=== PATIENT | male | born 1980 | race Caucasian/White ===

== ENCOUNTER 2020-03-18 10:18 | Emergency (ER) | payer SELFPAY ==
[2020-03-18 10:47] VITALS: BP 141/93; PULSE 83; RESP 14; TEMP 37.4; O2SAT 99; BMI 25.4
--- NOTE | 2020-03-18 11:33 | ED_ITS ---
HPI - Skin/Abscess/Foreign Bdy <MAGY Espinoza - Last Filed: 03/18/20 15:32> General Chief complaint: Skin/Abscess/Foreign Body Stated complaint: remove tick head from left chest this am Time Seen by Provider: 03/18/20 11:06 Source: patient Mode of arrival: Ambulatory Limitations: no limitations History of Present Illness HPI narrative: Patient is a 39-year-old male current smoker who denies pertinent medical history who presents with a chief complaint of a tick being on the left side of his chest. His tried to remove earlier this morning and is concerned that she broke off part of the tick. He states that the tick was attached for at least 24 hours, and was engorged when it was removed. They are concerned that it is a deer tick as there has been multiple cases of Lyme disease on [place] where they live. He complains of very low temps, below 99, general malaise. He does not know when his last tetanus was. He denies any major medical history. Related Data Home Medications Medication Instructions Recorded Confirmed . (No Home Medications) #0 05/22/10 Previous Rx's Medication Instructions Recorded doxycycline hyclate 200 mg PO DAILY 1 Days #2 tab 03/18/20 Allergies Allergy/AdvReac Type Severity Reaction Status Date / Time No Known Drug Allergies Allergy Verified 03/18/20 10:52 Review of Systems <MAGY Espinoza - Last Filed: 03/18/20 15:32> Review of Systems Narrative: GENERAL: Denies chills, fatigue, malaise, fever, sweats. HEENT: Denies sinus pain, ear pain, sore throat, difficulty swallowing, dizziness. RESPIRATORY: Denies dyspnea, cough, wheezing, hemoptysis, sputum. CARDIOVASCULAR: Denies chest pain, palpitations, orthopnea, edema, GASTROINTESTINAL: Denies nausea, vomiting, abdominal pain, diarrhea, constipation, melena. : Denies dysuria, frequency, incontinence, hematuria, urinary retention. MUSCULOSKELETAL: denies weakness, joint pain, or bony pain SKIN: See HPI NEUROLOGIC: Denies weakness, headache, numbness, change in speech, confusion, seizures, incoordination. PSYCHIATRIC: No concerning psychosocial issues. 12 point review of systems is negative except for those stated above Patient History [facility] - Last Filed: 03/18/20 15:32> Social History Smoking Status: Current every day smoker Smoking Status: Current every day smoker tobacco type: cigarettes alcohol intake frequency: 3 or more drinks per day Alcohol type: beer Substance Use Type: marijuana Exam <Leah NessTAMIP-BC - Last Filed: 03/18/20 15:32> Narrative Exam Narrative: GENERAL: This is a well-nourished, well-developed patient, no acute distress HEAD: Atraumatic. Normocephalic. No temporal or scalp tenderness. EYES: Pupils equal round and reactive. Extraocular motions intact. No scleral icterus. No injection or drainage. ENT: Nose without bleeding, purulent drainage or septal hematoma. Throat without erythema, tonsillar hypertrophy or exudate. Uvula midline. Airway patent. NECK: Trachea midline. No JVD or lymphadenopathy. Supple, nontender, no meningeal signs. CARDIOVASCULAR: Regular rate and rhythm RESPIRATORY: Clear to auscultation. Breath sounds equal bilaterally. No wheezes, rales, or rhonchi. No cough. No increased respiratory effort. No accessory muscle use. GASTROINTESTINAL: Abdomen soft, non-tender, nondistended. No hepato- splenomegaly, or palpable masses. No guarding. EXTREMITIES: No clubbing, cyanosis, or edema. No joint tenderness, effusion, or edema noted. BACK: Nontender without deformity or crepitance. No flank tenderness. NEURO: AOx3. SKIN: Tick bite location visible lateral aspect of left side of chest. No visible remnants, 1 cm erythema. No palpable warmth. No obvious drainage. Initial Vital Signs Initial Vital Signs: Vital Signs Temperature 99.4 F 03/18/20 10:47 Pulse Rate 83 03/18/20 10:47 Respiratory Rate 14 03/18/20 10:47 Blood Pressure 141/93 H 03/18/20 10:47 Pulse Oximetry 99 03/18/20 10:47 <Hari Coe MD - Last Filed: 03/18/20 18:19> Initial Vital Signs Initial Vital Signs: Vital Signs Temperature 99.4 F 03/18/20 10:47 Pulse Rate 83 03/18/20 10:47 Respiratory Rate 14 03/18/20 10:47 Blood Pressure 141/93 H 03/18/20 10:47 Pulse Oximetry 99 03/18/20 10:47 Scores <TEVIN Espinoza - Last Filed: 03/18/20 15:32> GCS Thurmond coma scale eye opening: Spontaneous Lam coma scale verbal response: Orientated Thurmond coma scale motor response: Obey commands Lam coma scale total score: 15 Course <Leah TEVIN Ness - Last Filed: 03/18/20 15:32> Orders Ordered: Discontinued Medications Diphtheria/Tetanus/Acell Pertussis (Adacel) 0.5 ml IM .ONCE ONE Stop: 03/18/20 11:23 Last Admin: 03/18/20 11:40 Dose: 0.5 ml [facility] Vital Signs Vital signs: Vital Signs - 8 hr 03/18/20 10:47 03/18/20 12:11 Temperature 99.4 F Pulse Rate 83 89 Respiratory Rate 14 16 Blood Pressure 141/93 H Blood Pressure [Left Arm] 139/94 H Pulse Oximetry 99 98 <Hari Coe MD - Last Filed: 03/18/20 18:19> Orders Ordered: Discontinued Medications Diphtheria/Tetanus/Acell Pertussis (Adacel) 0.5 ml IM .ONCE ONE Stop: 03/18/20 11:23 Last Admin: 03/18/20 11:40 Dose: 0.5 ml Documented by: MMCFARL Vital Signs Vital signs: Vital Signs - 8 hr 03/18/20 10:47 03/18/20 12:11 Temperature 99.4 F Pulse Rate 83 89 Respiratory Rate 14 16 Blood Pressure 141/93 H Blood Pressure [Left Arm] 139/94 H Pulse Oximetry 99 98 MDM - Skin/Abscess/Foreign Bdy <TEVIN Espinoza - Last Filed: 03/18/20 15:32> [facility] Narrative Medical decision making narrative: The patient presents with a chief complaint of a tick bite of unknown duration that was recently removed this morning. Patient's tetanus is updated in this morning. As per up-to-date, I did not dig to remove the head of the tick as up-to-date states ?if sections of the mouth parts of the tick remaining the skin they should be left alone as able normally be expelled spontaneously.However as the patient states that it was a deer tick, the tick was just removed and the tick was estimated to have been attached for over a day given his level of encouragement, we will do a prophylactic dose of doxycycline. I discussed at length following up with primary care provider the next few days as well as coming back to the emergency department for any acute concerns. Patient have no questions or concerns upon discharge and state understanding of return precautions as well as follow-up care. Discharge Plan Departure Patient Disposition: Home Clinical Impression: Tick bite Qualifiers: Encounter type: initial encounter Qualified Code(s): W57.XXXA - Bitten or stung by nonvenomous insect and other nonvenomous arthropods, initial encounter Discharge Date/Time: 03/18/20 12:10 Instructions: How to Remove a Tick, DI for Insect Bites and Stings, Protect Yourself from Tickborne Illnesses Activity Restrictions/Additional Instructions: Thank you for trusting us with your care today I sent a prescription of doxycycline to [facility] Please follow-up with primary care provider in the next few days. Please come back to the emergency department for any acute concerns. As always I encouraged taking a probiotic or yogurt with your antibiotics. Please use [id number] medications as needed and able As discussed, the tick head will eventually detach and fall out We also updated your tetanus today Prescriptions: New doxycycline hyclate 100 mg tablet 200 mg PO DAILY 1 Days Qty: 2 RF: 0 No Action . (No Home Medications) Qty: 0 RF: 0 Referrals: Hari Tovar MD [Physician] - <Hari Coe MD - Last Filed: 03/18/20 18:19> [facility] I was immediately available in the department for consultation. This documentation has been reviewed and I agree with assessment and plan. Supervised by Hari Coe MD
[2020-03-18] MEDS: TET,DIPH,PERTUSS(ACELL),VAC/PF 0.5 ML SYRINGE IM (11:40)
[2020-03-18 12:11] VITALS: BP 139/94; PULSE 89; RESP 16; O2SAT 98
== END 2020-03-18 12:10 | disposition home or self-care (01) ==
PROVIDERS: Emergency Provider Nurse Practitioner Family
DX: S20.362A Insect bite (nonvenomous) of left front wall of thorax, initial encounter (principal); W57.XXXA Bitten or stung by nonvenomous insect and other nonvenomous arthropods, initial encounter; Z23 Encounter for immunization
CPT/HCPCS: 90471; 99283; 90715

== ENCOUNTER 2024-11-20 00:38 | Emergency (ER) | payer MEDICAID, SELFPAY ==
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
[2024-11-20 01:18] VITALS: BP 174/101; PULSE 86; RESP 16; O2SAT 97; BMI 27.8
--- NOTE | 2024-11-20 01:18 | DI.CT.S_ITS ---
PROCEDURE: CT LUMBAR SPINE WO CON INDICATIONS: low back pain, hx of sx TECHNIQUE: Noncontrast 3 mm thick sections acquired from the T12 level to the sacrum. Sagittal and coronal reformats were constructed. For radiation dose reduction, the following was used: automated exposure control. COMPARISON: [facility] ([place]), CR, XR LUMBAR SPINE 2-3V, 04/10/2023, 15:34. FINDINGS: Image quality: Diagnostic Bones: Vertebral body heights are well maintained. No traumatic subluxation. There are jgkd-da-jdrqtlte overall spondylotic changes with disc space height loss and disc bulges, most prominent at L4-L5 and L5-S1. Suspected mild thecal sac narrowing is seen at these levels. Probable moderate bilateral L5-S1 neural foraminal narrowing and ijpa-er-kfcpgtxd bilateral L4 and L5 neural foramina also present. Less significant spondylotic changes are suspected at the other levels. Soft tissues: No suspicious calcifications. Partially seen sacroiliac ankylosis on the right and degenerative changes on the left. Mild vascular calcifications. IMPRESSION: No acute fracture or traumatic subluxation. Qiwu-ym-glmdrhal lower lumbar degenerative changes, as described above Partially visualized sacroiliac degenerative changes, with ankylosis on the right. If there is high concern for further derangement, consider MRI evaluation. Dictated by: Malcom Pena M.D. on 11/20/2024 at 1:46 Approved by: Malcom Pena M.D. on 11/20/2024 at 1:49
[2024-11-20] MEDS: predniSONE 20 MG TABLET 40 MG PO (01:22)
[2024-11-20] MEDS: OXYCODONE/ACETAMINOPHEN 5/325 TABLET 2 TAB PO (01:22)
[2024-11-20] MEDS: diazePAM 5 MG TABLET PO (01:22)
[2024-11-20] MEDS: MORPHINE 4 MG/ML INJ IV ×2 (02:52→03:37)
[2024-11-20] MEDS: KETOROLAC 30 MG/ML VIAL IV (02:52)
[2024-11-20 02:53] VITALS: PULSE 88; O2SAT 97
[2024-11-20 02:54] VITALS: BP 144/88; PULSE 87; O2SAT 98
[2024-11-20 03:00] VITALS: BP 150/90; PULSE 85; O2SAT 97
[2024-11-20 03:30] VITALS: PULSE 88; O2SAT 99
[2024-11-20 03:39] VITALS: BP 120/64; PULSE 79; RESP 18; O2SAT 96
== END 2024-11-20 04:11 | disposition home or self-care (01) ==
PROVIDERS: Emergency Provider Student in an Organized Health Care Education/Training Program; PCP Family Medicine
DX: S39.012A Strain of muscle, fascia and tendon of lower back, initial encounter (principal); M54.2 Cervicalgia; G89.29 Other chronic pain; W01.0XXA Fall on same level from slipping, tripping and stumbling without subsequent striking against object, initial encounter; Z98.890 Other specified postprocedural states
CPT/HCPCS: 36415; 72131; 99284; J1885; J2270

== ENCOUNTER → 2025-01-26 11:33 | Outpatient (CLI) | payer OTHER, SELFPAY ==
--- NOTE | 2025-01-26 | DI.RAD.S_ITS ---
PROCEDURE: XR CERVICAL SPINE 4V OR 5V INDICATIONS: NECK PAIN TECHNIQUE: Five views of the cervical spine acquired. COMPARISON: None. FINDINGS: Cervical spine curvature and alignment: Normal. Bones: There are no osseous abnormalities. Disc spaces: Mild C3-4 , severe C4-5 and severe C5-6 degenerative disc disease noted. There is mild degenerative facet disease C4-5 C5-6 C6-7. Intervertebral foramen: Oblique views show mild right C3-4, severe right C4-5 , severe C5-6 and moderate right C6-7 . On the left side, there is moderate C3-4 C4-5 C5-6 IV foraminal narrowing due to degenerative spurs Soft tissues: No soft tissue swelling, calcification or mass. IMPRESSION: Degeneration Dictated by: Chato Eldridge M.D. on 01/27/2025 at 12:19 Approved by: Chato Eldridge M.D. on 01/27/2025 at 12:21
--- NOTE | 2025-01-26 11:35 | DI.CT.S_ITS ---
PROCEDURE: CT CERVICAL SPINE WO CON INDICATIONS: DISEASE OF SPINAL CORD TECHNIQUE: Noncontrast 3 mm thick sections acquired from the skull base to the T4 level. Sagittal and coronal reformats were then constructed. Oblique axial images were also reformatted through the disc levels. For radiation dose reduction, the following was used: automated exposure control, adjustment of mA and/or kV according to patient size. COMPARISON: [facility], CR, XR CERVICAL SPINE 4V OR 5V, 01/26/2025, 11:45. FINDINGS: Image quality: This examination is somewhat limited by quantum mottle artifact. Bones: No fractures or dislocations. Visualized superior ribs are intact. Focal degenerative change is seen involving the C1-C2 interface anteriorly. There is moderate disc space narrowing seen at the C4-C5 level, with associated endplate irregularity and sclerosis. Posteriorly projected endplate osteophytes are seen. There is moderate to severe bilateral neural foraminal narrowing seen at this level and there is moderate central canal narrowing. At C5-C6, there is moderate disc space narrowing, with associated endplate irregularity and sclerosis. There is a superimposed central disc osteophyte protrusion. Moderate to severe bilateral neural foraminal narrowing can be seen and there is moderate central canal narrowing. Tlhd-po-huldunqw disc space narrowing can be seen at C6-C7, with moderate disc osteophyte complex. There is at least moderate left-sided and moderate to severe right-sided neural foraminal narrowing. Mild central canal narrowing is seen. Milder degenerative changes are seen elsewhere. Soft tissues: Prevertebral soft tissues are normal in thickness. No paravertebral hematomas. No apical pneumothoraces. IMPRESSION: Moderate cervical spine degenerative changes can be seen, which are worst inferiorly. If it would be helpful for clinical management decision making, please consider a dedicated cervical spine MRI for further evaluation (assuming that there is no contraindication). Dictated by: Peter Ryan M.D. on 01/26/2025 at 13:18 Approved by: Peter Ryan M.D. on 01/26/2025 at 13:21
== END ==
LOC: CT 11:34
PROVIDERS: PCP Family Medicine; Referring Provider Family Medicine; Visit Provider Family Medicine
DX: M50.021 Cervical disc disorder at C4-C5 level with myelopathy (principal); M48.02 Spinal stenosis, cervical region
CPT/HCPCS: 72050; 72125

== ENCOUNTER 2025-09-30 15:06 | Emergency (ER) | payer OTHER, SELFPAY ==
[2025-09-30] VITALS (20 sets, daily range): BP systolic 138–185; BP diastolic 83–110; PULSE 63–89; RESP 13–26; TEMP 36.4–37.3; O2SAT 98–100; BMI 26.1
--- OUTSIDE RECORDS SUMMARY | 2025-09-30 15:09 | XMS_ITS | Encounter Summary ---
Author Organization [facility] Address [address] [place] [address] Care Team Providers Care Child Development Instructor Name Role Phone Unavailable Primary Care Provider Unavailabl e Reason for Visit * Reason Onset Date Comments Referral 09/20/2025 Encounter Details Date Type Department Care Team (Late st Contact Info) Description 09/20/2025 Telephone [facility] [address] [phone] Hari Becker MD [address] [phone] Referral Social History Tobacco Use Types Packs/Day Years Used Date Smoking Tobacco: Never Assessed Sex and Gender Information Value Date Recorded Sex Assigned at Not on file Legal Sex Male 3:52 PM PDT Gender Identity Not on file Sexual Orientation Not on file documented as of this encounter Miscellaneous Notes * Telephone Encounter - Fatou Beckwith - 09/20/2025 3:02 PM PST Images from the original note were not included. [facility] Non PCP match/ referral pending/ office notified Referral from [facility] PCP listed as: Records sent to HIM to scan documented in this encounter Plan of Treatment Not on file documented as of this encounter Visit Diagnoses Not on filedocumented in this encounter
--- NOTE | 2025-09-30 15:34 | DI.US.S_ITS ---
PROCEDURE: US SCROTUM INDICATIONS: r/o torsion TECHNIQUE: Real-time scanning was performed of the scrotum and testicles, with image documentation. Color and pulse Doppler interrogation was performed of both testicles. COMPARISON: [facility], CT, CT ABDOMEN PELVIS WO [facility], 09/30/2025, 15:49. FINDINGS: Right: Testicle is normal in size at 4 x 2.3 x 3.3 cm, and homogenous in echotexture. Epididymis is normal in overall size and morphology. There is a small right- sided hydrocele. No varicoceles. Overlying scrotal skin is normal in thickness. Left: Testicle is normal in size at 4.5 x 1.9 x 3.6 cm, and homogeneous in echotexture. Epididymis is normal in overall size and morphology. No hydrocele or varicoceles. Overlying scrotal skin is normal in thickness. Doppler: Color and pulse Doppler demonstrate normal and symmetric arterial flow in both testicles. The prominent, elongated right inguinal lymph node is seen in the measures up to 7 mm in short axis. IMPRESSION: Negative for testicular torsion. Small right-sided hydrocele present. Dictated by: Peter Ryan M.D. on 09/30/2025 at 15:50 Approved by: Peter Ryan M.D. on 09/30/2025 at 15:51
--- NOTE | 2025-09-30 15:34 | DI.CT.S_ITS ---
PROCEDURE: CT ABDOMEN PELVIS WO CON INDICATIONS: r/o stone TECHNIQUE: Axial sections were acquired from the lung bases to the pubic symphysis. Coronal and sagittal reformats were performed. For radiation dose reduction, the following was used: automated exposure control, adjustment of mA and/or kV according to patient size. COMPARISON: [facility], US, US SCROTUM, 09/30/2025, 16:22. [facility], CT, CT LUMBAR SPINE WO CON, 11/20/2024, 1:34. FINDINGS: Image quality: Diagnostic. Lower Chest: No significant findings. URINARY: Right Kidney: No stones or hydronephrosis. Right Ureter: No hydroureter. Left Kidney: No stones or hydronephrosis. Left Ureter: No hydroureter. Bladder: Normal wall thickness. No stones. ABDOMEN: Liver: No contour-deforming solid mass. Gallbladder: No radiopaque gallstones or wall thickening. Biliary ducts: No biliary dilation. Pancreas: No ductal dilation. Spleen: Size is within normal limits. Adrenal Glands: No adrenal nodules. Stomach and Bowel: Normal colonic caliber, without significant wall thickening. No dilated loops of small bowel are seen. Peritoneum: No abnormal intraperitoneal fluid. No free air. Ventral Wall: No hernia. Abdominal Nodes: No enlarged retroperitoneal or mesenteric lymph nodes. Vessels: Aorta and inferior vena cava are normal in size. PELVIS: Pelvic Organs: Unremarkable. Pelvic Nodes: Unremarkable. Miscellaneous: Mild bilateral fat containing inguinal hernias are seen, left larger than right. Bones: Focal lower lumbar spine degenerative changes are seen. IMPRESSION: No obstructing stones or hydronephrosis. Additional findings: Focal lower lumbar spine degenerative change Mild bilateral fat containing inguinal hernias Dictated by: Peter Ryan M.D. on 09/30/2025 at 16:54 Approved by: Peter Ryan M.D. on 09/30/2025 at 16:55
[2025-09-30 16:18] LABS: Add Manual Diff / Slide Review NO; Hematocrit 46.9 % (41-53); Hemoglobin 15.7 g/dL (13.5-17.5); Lymphocytes Absolute Auto 1800 /uL (1100-4500); Mean Corpuscular HGB Conc 33.6 % (30-36); Mean Corpuscular Hemoglobin 30.5 PG (26-34); Mean Corpuscular Volume 90.9 fL (80-100); Platelet Count 236 X10^3/uL (150-400)
[2025-09-30 16:28] LABS: Alanine Aminotransferase 24 IU/L (<50); Albumin 4.9 g/dL (3.5-5.0); Albumin Globulin Ratio 1.3 (1.0-2.8); Alkaline Phosphatase 48 U/L (38-126); Blood Urea Nitrogen 15 mg/dL (9-20); Calcium 9.8 mg/dL (8.4-10.2); Carbon Dioxide 23 mmol/L (22-32); Chloride 105 mmol/L (98-107); Estimated Glomerular Filt Rate > 60 mL/min (>60); Globulin 3.8 g/dL (1.7-4.1); Glucose 109 mg/dL (70-99); HEMOLYSIS < 15 (0-50); Potassium 3.5 mmol/L (3.4-5.1); Sodium 141 mmol/L (137-145); Total Protein 8.7 g/dL (6.3-8.2)
--- NOTE | 2025-09-30 17:03 | ED_ITS ---
HPI - Abdominal Pain <Lydia Corley MD - Last Filed: 10/02/25 01:09> General Chief Complaint: Abdominal Pain Stated Complaint: back px getting worse 7days Time Seen by Provider: 09/30/25 15:34 History of Present Illness HPI narrative: 45 year old male presents with 1 week history of right testicular, right inguinal, right lower back pain, and watery diarrhea. Past medical history significant for chronic cervical neck, low back, and sacral pain on chronic opioid medication for pain. He has been having anorexia, nausea, 1 episode of vomiting. Denies any fevers, chills. No chest pain, dyspnea, diaphoresis. No history of nephrolithiasis. Related Data Home Medications ?Medication ?Instructions ?Recorded ?Confirmed . (No Home Medications) ##0 05/22/10 Previous Rx's ?Medication ?Instructions ?Recorded ketorolac 0.5 % eye drops (Acular) 2 drp EYE-BOTH Q8H PRN edema #5 mL 04/04/21 Allergies Allergy/AdvReac Type Severity Reaction Status Date / Time No Known Drug Allergies Allergy Verified 03/18/20 10:52 Review of Systems <Lydia Corley MD - Last Filed: 10/02/25 01:09> Review of Systems Narrative: See HPI. Patient History <Lydia Corley MD - Last Filed: 10/02/25 01:09> tobacco type: cigarettes alcohol intake frequency: 3 or more drinks per day Alcohol type: beer Exam <Lydia Corley MD - Last Filed: 10/02/25 01:09> Narrative Exam Narrative: Vitals: Reviewed. Patient is hypertensive but all other vitals within normal range. Gen: Well-developed, well-nourished, visibly in pain. Eyes: No scleral icterus, EOMI Cards: Regular rate, no murmurs, rubs, gallops. Pulm: Clear to auscultation bilaterally. Abd: Soft, nondistended, nontender to palpation. 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 Normal external male genitalia. No penile or scrotal lesions. Right testicle tender to palpation. Normal testicle examination. Cord structures palpable bilaterally. Ext: No peripheral edema bilaterally. 2+ PT pulse. Neuro: A&O x4, cranial nerves grossly intact, antalgic gait secondary to pain. Psych: Normal. Initial Vital Signs Initial Vital Signs: Vital Signs Temperature 97.6 F 09/30/25 15:19 Pulse Rate 68 09/30/25 15:19 Respiratory Rate 16 09/30/25 15:19 Blood Pressure 169/99 H 09/30/25 15:19 Pulse Oximetry 99 09/30/25 15:19 Oxygen Delivery Method Room Air 09/30/25 15:19 <Rafa Mccoy MD - Last Filed: 10/01/25 04:34> Initial Vital Signs Initial Vital Signs: Vital Signs Temperature 97.6 F 09/30/25 15:19 Pulse Rate 68 09/30/25 15:19 Respiratory Rate 16 09/30/25 15:19 Blood Pressure 169/99 H 09/30/25 15:19 Pulse Oximetry 99 09/30/25 15:19 Oxygen Delivery Method Room Air 09/30/25 15:19 Course <Lydia Corley MD - Last Filed: 10/02/25 01:09> Course Course Narrative: [address] Zepeda, unlikely that his fat containing hernias causing leukocytosis and left shift seen on CBC. 1904 patient and partner updated at bedside. Informed of CT and ultrasound findings. Do not believe that inguinal fat containing hernia and small hydrocele is causing his significant pain. Given patient has severe diarrhea, will obtain stool sample. Orders Ordered: Discontinued Medications Hydromorphone HCl (Hydromorphone 1 Mg/Ml Syringe) 1 mg IV NOW ONE Stop: 09/30/25 16:43 Last Admin: 09/30/25 17:07 Dose: 1 mg Documented By: EV Sodium Chloride (Normal Saline 0.9%) 1,000 mls @ 1,000 mls/hr IV BOLUS ONE Stop: 09/30/25 18:42 Last Infusion: 09/30/25 18:57 Dose: Infused Documented By: Admin: 09/30/25 17:53 Dose: 1,000 mls/hr Documented By: EV Sodium Chloride (Normal Saline 0.9%) 1,000 mls @ 1,000 mls/hr IV BOLUS ONE Stop: 09/30/25 20:03 Last Infusion: 09/30/25 20:47 Dose: Infused Documented By: Admin: 09/30/25 19:39 Dose: 1,000 mls/hr Documented By: JAMIE Ibuprofen (Ibuprofen 400 Mg Tablet) 600 mg PO NOW ONE Stop: 09/30/25 17:44 Last Admin: 09/30/25 17:54 Dose: 600 mg Documented By: EV Ketorolac Tromethamine (Ketorolac 30 Mg/Ml Vial) 15 mg IV NOW ONE Stop: 09/30/25 19:06 Last Admin: 09/30/25 19:38 Dose: 15 mg Documented By: JAMIE Ondansetron HCl (Ondansetron 4 Mg/2 Ml Inj) 4 mg IV NOW ONE Stop: 09/30/25 15:36 Last Admin: 09/30/25 17:06 Dose: 4 mg Documented By: EV Oxycodone/Acetaminophen (Oxycodone/Apap 5/325 Prepack) 1 bottle MISC DIRECTED ONE Stop: 09/30/25 21:40 Last Admin: 09/30/25 21:46 Dose: 1 bottle Documented By: JAMIE Vital Signs Vital signs: Vital Signs - 8 hr 09/30/25 21:00 09/30/25 21:00 09/30/25 21:30 Temperature Pulse Rate 64 69 Respiratory Rate 13 22 Blood Pressure 174/95 H Pulse Oximetry 99 99 Oxygen Delivery Method 09/30/25 21:30 09/30/25 21:57 09/30/25 21:57 Temperature Pulse Rate 66 Respiratory Rate Blood Pressure 161/106 H 163/106 H Pulse Oximetry 100 Oxygen Delivery Method 09/30/25 22:05 Temperature 99.2 F Pulse Rate 72 Respiratory Rate 20 Blood Pressure 163/106 H Pulse Oximetry 98 Oxygen Delivery Method Room Air <Rafa Mccoy MD - Last Filed: 10/01/25 04:34> Orders Ordered: Discontinued Medications Hydromorphone HCl (Hydromorphone 1 Mg/Ml Syringe) 1 mg IV NOW ONE Stop: 09/30/25 16:43 Last Admin: 09/30/25 17:07 Dose: 1 mg Documented By: EV Sodium Chloride (Normal Saline 0.9%) 1,000 mls @ 1,000 mls/hr IV BOLUS ONE Stop: 09/30/25 18:42 Last Infusion: 09/30/25 18:57 Dose: Infused Documented By: Admin: 09/30/25 17:53 Dose: 1,000 mls/hr Documented By: EV Sodium Chloride (Normal Saline 0.9%) 1,000 mls @ 1,000 mls/hr IV BOLUS ONE Stop: 09/30/25 20:03 Last Infusion: 09/30/25 20:47 Dose: Infused Documented By: Admin: 09/30/25 19:39 Dose: 1,000 mls/hr Documented By: JAMIE Ibuprofen (Ibuprofen 400 Mg Tablet) 600 mg PO NOW ONE Stop: 09/30/25 17:44 Last Admin: 09/30/25 17:54 Dose: 600 mg Documented By: EV Ketorolac Tromethamine (Ketorolac 30 Mg/Ml Vial) 15 mg IV NOW ONE Stop: 09/30/25 19:06 Last Admin: 09/30/25 19:38 Dose: 15 mg Documented By: JAMIE Ondansetron HCl (Ondansetron 4 Mg/2 Ml Inj) 4 mg IV NOW ONE Stop: 09/30/25 15:36 Last Admin: 09/30/25 17:06 Dose: 4 mg Documented By: EV Oxycodone/Acetaminophen (Oxycodone/Apap 5/325 Prepack) 1 bottle MISC DIRECTED ONE Stop: 09/30/25 21:40 Last Admin: 09/30/25 21:46 Dose: 1 bottle Documented By: JAMIE Vital Signs Vital signs: Vital Signs - 8 hr 09/30/25 21:00 09/30/25 21:00 09/30/25 21:30 Temperature Pulse Rate 64 69 Respiratory Rate 13 22 Blood Pressure 174/95 H Pulse Oximetry 99 99 Oxygen Delivery Method 09/30/25 21:30 09/30/25 21:57 09/30/25 21:57 Temperature Pulse Rate 66 Respiratory Rate Blood Pressure 161/106 H 163/106 H Pulse Oximetry 100 Oxygen Delivery Method 09/30/25 22:05 Temperature 99.2 F Pulse Rate 72 Respiratory Rate 20 Blood Pressure 163/106 H Pulse Oximetry 98 Oxygen Delivery Method Room Air MDM - Abdominal Pain <Lydia Corley MD - Last Filed: 10/02/25 01:09> Lab Data 09/30/25 16:10 09/30/25 16:10 Labs: Lab Results 09/30/25 09/30/25 Range/Units 16:10 21:51 WBC 13.8 H (4.5-11.0) X10^3/uL RBC 5.16 (4.5-5.9) X10^6/uL Hgb 15.7 (13.5-17.5) g/dL Hct 46.9 (41-53) % MCV 90.9 (80-100) fL MCH 30.5 (26-34) PG MCHC 33.6 (30-36) % RDW 13.5 (11.6-14.8) % Plt Count 236 (150-400) X10^3/uL Neut % (Auto) 80.7 H (50-75) % Lymph % (Auto) 13.2 L (25-40) % Haines % (Auto) 5.5 (3-14) % Eos % (Auto) 0.0 L (2-4) % Baso % (Auto) 0.6 (0-2) % Neut # (Auto) 47345 H (9304-0562) /uL Lymph # (Auto) 1800 (8540-4636) /uL Haines # (Auto) 800 (0-900) /uL Eos # (Auto) 0 (0-450) /uL Baso # (Auto) 100 (0-100) /uL Sodium 141 (137-145) mmol/L Potassium 3.5 (3.4-5.1) mmol/L Chloride 105 (98-107) mmol/L Carbon Dioxide 23 (22-32) mmol/L BUN 15 (9-20) mg/dL Creatinine 0.71 (0.66-1.25) mg/dL Estimated GFR > 60 (>60) mL/min BUN/Creatinine Ratio 21.1 (6-22) Glucose 109 H (70-99) mg/dL Calcium 9.8 (8.4-10.2) mg/dL Total Bilirubin 0.5 (0.2-1.3) mg/dL AST 23 (17-59) IU/L ALT 24 (<50) IU/L Alkaline Phosphatase 48 (38-126) U/L Total Protein 8.7 H (6.3-8.2) g/dL Albumin 4.9 (3.5-5.0) g/dL Globulin 3.8 (1.7-4.1) g/dL Albumin/Globulin Ratio 1.3 (1.0-2.8) Urine Color Yellow Urine Appearance Clear Urine pH 6.0 (4.5-8.0) Ur Specific Morrill >=1.030 H (1.000-1.035) Urine Protein Trace H (Negative) Urine Glucose (UA) Negative (Negative) g/dL Urine Ketones Negative (NEGATIVE) Urine Occult Blood Negative (Negative) Urine Nitrate Negative (Negative) Urine Bilirubin Negative (NEGATIVE) Urine Urobilinogen 0.2 (0.2) E.U./dL Ur Leukocyte Esterase Negative (NEGATIVE) Urine RBC 0-1/hpf (0-5/HPF) Urine WBC 0-1/hpf (0-5/HPF) Ur Squamous Epith Cells 0-1 /hpf (0-5/HPF) Urine Bacteria Occasional (0-1) (None) Urine Mucus 3+ H (Negative) Ur Culture Indicated? 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 Color and pulse Doppler interrogation was performed of both testicles. COMPARISON: [facility], CT, CT ABDOMEN PELVIS WO CON, 09/30/2025, 15:49. FINDINGS: Right: Testicle is normal in size at 4 x 2.3 x 3.3 cm, and homogenous in echotexture. Epididymis is normal in overall size and morphology. There is a small right-sided hydrocele. No varicoceles. Overlying scrotal skin is normal in thickness. Left: Testicle is normal in size at 4.5 x 1.9 x 3.6 cm, and homogeneous in echotexture. Epididymis is normal in overall size and morphology. No hydrocele or varicoceles. Overlying scrotal skin is normal in thickness. Doppler: Color and pulse Doppler demonstrate normal and symmetric arterial flow in both testicles. The prominent, elongated right inguinal lymph node is seen in the measures up to 7 mm in short axis. IMPRESSION: Negative for testicular torsion. Small right-sided hydrocele present. CT scan - abdomen/pelvis: Radiologist's Impression: PROCEDURE: CT ABDOMEN PELVIS WO CON INDICATIONS: r/o stone TECHNIQUE: Axial sections were acquired from the lung bases to the pubic symphysis. Coronal and sagittal reformats were performed. For radiation dose reduction, the following was used: automated exposure control, adjustment of mA and/or kV according to patient size. COMPARISON: [facility], US, US SCROTUM, 09/30/2025, 16:22. [facility], CT, CT LUMBAR SPINE WO CON, 11/20/2024, 1:34. FINDINGS: Image quality: Diagnostic. Lower Chest: No significant findings. URINARY: Right Kidney: No stones or hydronephrosis. Right Ureter: No hydroureter. Left Kidney: No stones or hydronephrosis. Left Ureter: No hydroureter. Bladder: Normal wall thickness. No stones. ABDOMEN: Liver: No contour-deforming solid mass. Gallbladder: No radiopaque gallstones or wall thickening. Biliary ducts: No biliary dilation. Pancreas: No ductal dilation. Spleen: Size is within normal limits. Adrenal Glands: No adrenal nodules. Stomach and Bowel: Normal colonic caliber, without significant wall thickening. No dilated loops of small bowel are seen. Peritoneum: No abnormal intraperitoneal fluid. No free air. Ventral Wall: No hernia. Abdominal Nodes: No enlarged retroperitoneal or mesenteric lymph nodes. Vessels: Aorta and inferior vena cava are normal in size. PELVIS: Pelvic Organs: Unremarkable. Pelvic Nodes: Unremarkable. Miscellaneous: Mild bilateral fat containing inguinal hernias are seen, left larger than right. Bones: Focal lower lumbar spine degenerative changes are seen. IMPRESSION: No obstructing stones or hydronephrosis. Additional findings: Focal lower lumbar spine degenerative change Mild bilateral fat containing inguinal hernias MDM Narrative Medical decision making narrative: 45 year old male with history of cervical, lower back, sacral pain on chronic opioids presents with one-week history of right lower back pain right inguinal pain and right testicular pain. Differential diagnosis: Nephrolithiasis, inguinal hernia, incarcerated versus strangulated hernia, testicular torsion, hydrocele, amount of saline, UTI, colitis, viral versus bacterial gastroenteritis, norovirus, other. Plans: Labs, imaging, pain control. Imaging: US: Negative for testicular torsion. Small right-sided hydrocele present. CT: Mild bilateral fat containing inguinal hernias ER course: The patient presented to the emergency department hemodynamically stable, though with elevated blood pressure measured at 159/99. Physical examination was notable for visible discomfort and marked tenderness to palpation of the right testicle. Initial urine collection was unsuccessful due to diarrhea occurring during attempted micturition. Imaging later demonstrated a small right?sided hydrocele and mild bilateral fat?containing inguinal hernias. I discussed with the patient that these findings are unlikely to account for the severity of his pain. Additionally, I reviewed the leukocytosis with left shift with Dr. Zepeda from General Surgery, who agreed that the inguinal hernias are not believed to be the source of the laboratory abnormalities. In the ER, patient pain and headache was controlled with dilaudid and motrin. He was given 2L fluids. At 1710 patient was signed out to Dr. Rafa Mccoy pending urinalysis, stool culture, pain control. 21:30: Patient still having some pain but better, eager to be discharged and will provide stool culture as outpatient ,advised to come back if sx worsen <Rafa Mccoy MD - Last Filed: 10/01/25 04:34> Lab Data Labs: Lab Results 09/30/25 09/30/25 Range/Units 16:10 21:51 WBC 13.8 H (4.5-11.0) X10^3/uL RBC 5.16 (4.5-5.9) X10^6/uL Hgb 15.7 (13.5-17.5) g/dL Hct 46.9 (41-53) % MCV 90.9 (80-100) fL MCH 30.5 (26-34) PG MCHC 33.6 (30-36) % RDW 13.5 (11.6-14.8) % Plt Count 236 (150-400) X10^3/uL Neut % (Auto) 80.7 H (50-75) % Lymph % (Auto) 13.2 L (25-40) % Haines % (Auto) 5.5 (3-14) % Eos % (Auto) 0.0 L (2-4) % Baso % (Auto) 0.6 (0-2) % Neut # (Auto) 22015 H (5119-5503) /uL Lymph # (Auto) 1800 (5287-5329) /uL Haines # (Auto) 800 (0-900) /uL Eos # (Auto) 0 (0-450) /uL Baso # (Auto) 100 (0-100) /uL Sodium 141 (137-145) mmol/L Potassium 3.5 (3.4-5.1) mmol/L Chloride 105 (98-107) mmol/L Carbon Dioxide 23 (22-32) mmol/L BUN 15 (9-20) mg/dL Creatinine 0.71 (0.66-1.25) mg/dL Estimated GFR > 60 (>60) mL/min BUN/Creatinine Ratio 21.1 (6-22) Glucose 109 H (70-99) mg/dL Calcium 9.8 (8.4-10.2) mg/dL Total Bilirubin 0.5 (0.2-1.3) mg/dL AST 23 (17-59) IU/L ALT 24 (<50) IU/L Alkaline Phosphatase 48 (38-126) U/L Total Protein 8.7 H (6.3-8.2) g/dL Albumin 4.9 (3.5-5.0) g/dL Globulin 3.8 (1.7-4.1) g/dL Albumin/Globulin Ratio 1.3 (1.0-2.8) Urine Color Yellow Urine Appearance Clear Urine pH 6.0 (4.5-8.0) Ur Specific Morrill >=1.030 H (1.000-1.035) Urine Protein Trace H (Negative) Urine Glucose (UA) Negative (Negative) g/dL Urine Ketones Negative (NEGATIVE) Urine Occult Blood Negative (Negative) Urine Nitrate Negative (Negative) Urine Bilirubin Negative (NEGATIVE) Urine Urobilinogen 0.2 (0.2) E.U./dL Ur Leukocyte Esterase Negative (NEGATIVE) Urine RBC 0-1/hpf (0-5/HPF) Urine WBC 0-1/hpf (0-5/HPF) Ur Squamous Epith Cells 0-1 /hpf (0-5/HPF) Urine Bacteria Occasional (0-1) (None) Urine Mucus 3+ H (Negative) Ur Culture Indicated? Cult not indicated Vol Urine Centrifuged 10ml (spun) MDM Narrative Medical decision making narrative: 45 year old male with history of cervical, lower back, sacral pain on chronic opioids presents with one-week history of right lower back pain right inguinal pain and right testicular pain. Differential diagnosis: Nephrolithiasis, inguinal hernia, incarcerated versus strangulated hernia, testicular torsion, hydrocele, amount of saline, UTI, colitis, viral versus bacterial gastroenteritis, norovirus, other. Plans: Labs, imaging, pain control. Imaging: US: Negative for testicular torsion. Small right-sided hydrocele present. CT: Mild bilateral fat containing inguinal hernias ER course: The patient presented to the emergency department hemodynamically stable, though with elevated blood pressure measured at 159/99. Physical examination was notable for visible discomfort and marked tenderness to palpation of the right testicle. Initial urine collection was unsuccessful due to diarrhea occurring during attempted micturition. Imaging later demonstrated a small right?sided hydrocele and mild bilateral fat?containing inguinal hernias. I discussed with the patient that these findings are unlikely to account for the severity of his pain. Additionally, I reviewed the leukocytosis with left shift with Dr. Zepeda from General Surgery, who agreed that the inguinal hernias are not believed to be the source of the laboratory abnormalities. In the ER, patient pain and headache was controlled with dilaudid and motrin. He was given 2L fluids. At 1710 patient was signed out to Dr. Rafa Mccoy pending urinalysis, stool culture, pain control. 21:30: paitent still having some pain but better, eager to be discharged and will provide stool culture as outpatient ,advised to come back if sx worsen Discharge Plan Departure Patient Disposition: Home Clinical Impression: Abdominal pain, Hydrocele, right, Inguinal hernia bilateral, non-recurrent Diarrhea Qualifiers: Diarrhea type: unspecified type Qualified Code(s): R19.7 - Diarrhea, unspecified Instructions: Groin Hernia -- Adult, DI for Hydrocele-Adult Activity Restrictions/Additional Instructions: You were seen in the emergency department for back pain, groin pain, and testicular pain. In the ER: - Ultrasound revealed a small right-sided hydrocele. You have been given a referral to urology for this. - CT revealed mild fat containing inguinal hernias on both sides (left larger than right). You have been given a referral to general surgery for this. Plan: - Continue taking zofran as needed for nausea - Take motrin as needed for pain - Continue your home pain regimen, use prepack for pain if needed, come back to er if pain not controlled, bring in stool study in near future when possible. Return to the ER if you develop any new or worsening symptoms to include increased nausea or vomiting, inability to keep fluids down, increased abdominal pain, or any other concerning signs or symptoms. Prescriptions: No Action . (No Home Medications) Qty: 0 ketorolac [Acular] 0.5 % drops 2 drp EYE-BOTH Q8H PRN (Reason: edema) Qty: 5 0RF Referrals: Gianluca Zepeda MD [Physician, General Surgery] Referral Note: Bilateral inguinal fat containing hernias Tatiana June MD [Non-Staff, Urology] Referral Note: Right hydrocele Hari Tovar MD [Primary Care Provider, [facility]] Stand Alone Forms: Patient Portal/API
[2025-09-30] MEDS: ONDANSETRON 4 MG/2 ML INJ IV (17:06)
[2025-09-30] MEDS: SODIUM CHLORIDE 0.9% 1,000 ML 1000 ML IV ×2 (17:53→19:39)
[2025-09-30] MEDS: IBUPROFEN 400 MG TABLET 600 MG PO (17:54)
--- NOTE | 2025-09-30 19:29 | W.PC.EDHO ---
Handoff/shift report received from Cecelia Cuellar RN/[place] RN
[2025-09-30] MEDS: KETOROLAC 30 MG/ML VIAL 15 MG IV (19:38)
[2025-09-30 22:07] LABS: Appearance Urine UA CLEAR; Bilirubin Urine UA NEGATIVE (NEGATIVE); Color Urine UA YELLOW; Glucose Urine UA NEGATIVE (Negative); Ketones Urine UA NEGATIVE (NEGATIVE); Leukocyte Esterase Urine UA NEGATIVE (NEGATIVE); Nitrite Urine UA NEGATIVE (Negative); Occult Blood Urine UA NEGATIVE (Negative); Protein Urine UA TRACE (Negative); Specific Gravity Urine UA >=1.030 (1.000-1.035); Urobilinogen Urine UA 0.2 E.U./dL (0.2); pH Urine UA 6.0 (4.5-8.0)
[2025-09-30 22:18] LABS: Culture Indicated Urine Cult Not Indicated
== END 2025-09-30 22:08 | disposition home or self-care (01) ==
PROVIDERS: Student in an Organized Health Care Education/Training Program; Emergency Provider Family Medicine; PCP Family Medicine
DX: R10.31 Right lower quadrant pain (principal); N43.3 Hydrocele, unspecified; K40.20 Bilateral inguinal hernia, without obstruction or gangrene, not specified as recurrent; R19.7 Diarrhea, unspecified; R03.0 Elevated blood-pressure reading, without diagnosis of hypertension; R51.9 Headache, unspecified; D72.829 Elevated white blood cell count, unspecified
CPT/HCPCS: 74176; 76870; 80053; 81001; 85025; 93976; 96361; 96374; 96375; 99284; J1171; J1885; J2405; J7030